=== PATIENT | male | born 1950 | race Caucasian/White ===

== ENCOUNTER 2017-02-18 21:24 | Emergency (ER) | payer BC ==
[2017-02-18] MEDS ORDERED: HYDROMORPHONE HCL 1 MG/ML CPJ IVP ONE (23:05)
[2017-02-18] MEDS ORDERED: PROMETHAZINE HCL 25 MG/ML VIAL IVP ONE (23:05)
[2017-02-18] MEDS ORDERED: KETOROLAC 30 MG/ML VIAL IVP ONE (23:05)
--- NOTE | 2017-02-19 00:53 | Emergency Department Record ---
History of Present Illness - General Chief Complaint: Back Pain/Injury Stated Complaint: LOWER BACK PAIN,VOMITTING Time Seen by Provider: 02/18/17 22:54 Source: Patient Mode of Arrival: Ambulatory Limitations: No limitations - History of Present Illness Initial Comments: pt lifted a bag of charcoal and felt a pop in his back and inow having pain going down his r leg w tingling in both leg. no loss of bowel or bladder control. he has a hx of a broken back many years ago MD Complaint: Back pain, Back injury Onset/Timin -: Hour(s) Similar Symptoms Previously: Yes Place: Home Radiation: None Quality: Other Consistency: Getting worse Context: Bending, While lifting Associated Symptoms: Nausea/vomiting Treatments Prior to Arrival: Prescription analgesics, Other - Related Data Home Medications Medication Instructions Recorded Confirmed Last Taken Aspirin [Adult Low Dose Aspirin EC] 81 mg PO DAILY 03/12/16 02/18/17 Unknown Atorvastatin Calcium 40 mg PO DAILY 03/12/16 02/18/17 Unknown Cetirizine HCl [Allergy Relief] 10 mg PO DAILY 03/12/16 02/18/17 Unknown Fenofibrate Nanocrystallized 145 mg PO DAILY 03/12/16 02/18/17 Unknown [Fenofibrate] Multivitamin [Multi-Vitamin Daily] 2 each PO DAILY 03/12/16 02/18/17 Unknown [place]-3/Dha/Epa/Fish Oil [Super 1 each PO DAILY 03/12/16 02/18/17 Unknown Dha Gems Softgel] Propranolol HCl [Propranolol HCl 80 mg PO DAILY 03/12/16 02/18/17 Unknown ER] Previous Rx's Medication Instructions Recorded Cyclobenzaprine HCl [Flexeril] 5 mg PO TID #20 tab 02/19/17 Allergies Allergy/AdvReac Type Severity Reaction Status Date / Time acetaminophen [From Vicodin] Allergy DIFFICULTY Verified 03/12/16 08:53 BREATHING alcohol Allergy DIFFICULTY Verified 03/12/16 08:53 SWALLOWING butorphanol [From Stadol] Allergy ANAPHYLAXIS Verified 02/18/17 22:18 codeine Allergy DIFFICULTY Verified 03/12/16 08:53 BREATHING hydrocodone bitartrate Allergy DIFFICULTY Verified 03/12/16 08:53 [From Vicodin] BREATHING meperidine HCl [From Demerol] Allergy DIFFICULTY Verified 03/12/16 08:53 BREATHING morphine Allergy DIFFICULTY Verified 03/12/16 08:53 BREATHING Travel Screening - Travel/Exposure Within Last 30 Days Have you traveled within the last 30 days?: No - Travel/Exposure Within Last Year Have you traveled outside the [place] in the last year?: No - Additonal Travel Details Have you been exposed to anyone with a communicable illness?: No - Travel Symptoms Symptom Screening: None Review of Systems Reviewed: No additional complaints except as noted below Constitutional: Reports: As per HPI. Denies: Chills, Fever, Malaise, Night sweats, Weakness, Weight change Eyes: Reports: As per HPI. Denies: Eye discharge, Eye pain, Photophobia, Vision change ENT: Reports: As per HPI. Denies: Congestion, Dental pain, Ear pain, Epistaxis , Hearing loss, Throat pain Respiratory: Reports: As per HPI. Denies: Cough, Dyspnea, Hemoptysis, Stridor, Wheezes Cardiovascular: Reports: As per HPI. Denies: Arrhythmia, Chest pain, Dyspnea on exertion, Edema, Murmurs, Orthopnea, Palpitations, Paroxysmal nocturnal dyspnea, Rheumatic Fever, Syncope Endocrine: Reports: As per HPI. Denies: Fatigue, Heat or cold intolerance, Polydipsia, Polyuria Gastrointestinal: Reports: As per HPI. Denies: Abdominal pain, Constipation, Diarrhea, Hematemesis, Hematochezia, Melena, Nausea, Vomiting Genitourinary: Reports: As per HPI. Denies: Dysuria, Frequency, Hematuria, Incontinence, Retention, Testicular pain, Testicular mass, Urgency Musculoskeletal: Reports: As per HPI. Denies: Arthralgia, Back pain, Gout, Joint swelling, Myalgia, Neck pain Skin: Reports: As per HPI. Denies: Bruising, Change in color, Change in hair/ nails, Lesions, Pruritus, Rash Neurological: Reports: As per HPI. Denies: Abnormal gait, Confusion, Headache, Numbness, Paresthesias, Seizure, Tingling, Tremors, Vertigo, Weakness Psychiatric: Reports: As per HPI. Denies: Anxiety, Auditory hallucinations, Depression, Homicidal thoughts, Suicidal thoughts, Visual hallucinations Hematological/Lymphatic: Reports: As per HPI. Denies: Anemia, Blood Clots, Easy bleeding, Easy bruising, Swollen glands Past Medical History - SOCIAL HISTORY Smoking Status: Never smoker Alcohol Use: None Drug Use: None - RESPIRATORY Hx Respiratory Disorders: No - CARDIOVASCULAR Hx Cardio Disorders: Yes Hx Coronary Artery Disease: Yes - NEURO Hx Neuro Disorders: No - GI Hx GI Disorders: No - Hx Kidney Stones: Yes - ENDOCRINE Hx Endocrine Disorders: No Hx Diabetes: No Hx Thyroid Disease: No - MUSCULOSKELETAL Hx Musculoskeletal Disorders: Yes Hx Arthritis: Yes - PSYCH Hx Psych Problems: No - HEMATOLOGY/ONCOLOGY Hx Hematology/Oncology Disorders: No Family Medical History Any Significant Family History?: No Hx Cancer: Brother/Sister Hx Diabetes: Grandparents Hx Heart Disease: Grandparents Physical Exam - General General Appearance: Alert, Oriented x3, Cooperative, Mild distress - Head Head exam: Normal inspection - Eye Eye exam: Normal appearance, PERRL, EOMI Pupils: Normal accommodation - ENT ENT exam: Normal exam, Mucous membranes moist, Normal external ear exam, Normal orophraynx Ear exam: Normal external inspection. negative: External canal tenderness Nasal Exam: Normal inspection. negative: Discharge, Sinus tenderness Mouth exam: Normal external inspection, Tongue normal Teeth exam: Normal inspection. negative: Dental caries Throat exam: Normal inspection. negative: Tonsillar erythema, Tonsillar exudate - Neck Neck exam: Normal inspection, Full ROM. negative: Tenderness - Respiratory Respiratory exam: Normal lung sounds bilaterally. negative: Respiratory distress - Cardiovascular Cardiovascular Exam: Regular rate, Normal rhythm, Normal heart sounds - GI/Abdominal GI/Abdominal exam: Soft, Normal bowel sounds. negative: Tenderness - Rectal Rectal exam: Deferred - exam: Deferred - Extremities Extremities exam: Normal inspection, Full ROM, Normal capillary refill. negative: Tenderness - Back Back exam: Reports: Muscle spasm, Paraspinal tenderness, Tenderness, Vertebral tenderness. Denies: Normal inspection, Full ROM, Rash noted - Neurological Neurological exam: Alert, CN II-XII intact, Normal gait, Oriented X3 - Psychiatric Psychiatric exam: Normal affect, Normal mood - Skin Skin exam: Dry, Intact, Normal color, Warm Course Vital Signs 02/18/17 02/18/17 02/18/17 22:08 23:21 23:23 Temperature 98.3 F 98.5 F 98.5 F Pulse Rate [ 56 L 54 L 55 L Pulse Ox Probe] Respiratory 18 20 20 Rate Blood Pressure 167/90 160/85 [Left Arm] Pulse Ox 96 96 95 02/19/17 00:05 Temperature Pulse Rate [ 51 L Pulse Ox Probe] Respiratory 20 Rate Blood Pressure 155/80 [Left Arm] Pulse Ox 98 - Reevaluation(s) Reevaluation #1: 02/19/17 00:52 pt feels better. pt has plenty of norco on hand Reevaluation #2: 02/19/17 00:52 ct neg except djd Disposition Disposition: Discharge Clinical Impression: Radiculopathy Qualifiers: Spinal region: lumbosacral Qualified Code(s): M54.17 - Radiculopathy, lumbosacral region Disposition: Home, Self-Care Condition: (1) Good Instructions: Lumbar Radiculopathy (ED) Additional Instructions: follow up with family doctor this week. return sooner if worse. no lifting more then 5 lbs for 5 days. ice every 4 hrs for 2 days Prescriptions: Cyclobenzaprine HCl [Flexeril] 5 mg PO TID #20 tab Forms: Patient Portal Access
== END 2017-02-19 01:07 | disposition home or self-care (01) ==
LOC: ER 21:24
DX: S39.92XA Unspecified injury of lower back, initial encounter (principal); M54.17 Radiculopathy, lumbosacral region; X50.9XXA Other and unspecified overexertion or strenuous movements or postures, initial encounter; Y92.009 Unspecified place in unspecified non-institutional (private) residence as the place of occurrence of the external cause; R11.2 Nausea with vomiting, unspecified
CPT/HCPCS: 99284 ×2; 96374; 96375; 72131; J1885; J1170; J2550

== ENCOUNTER 2019-03-25 05:33 | Day surgery (SDC) | payer BC ==
[2019-03-25] MEDS ORDERED: DEXAMETHASONE 4 MG/ML 1ML VIAL IVP ONE (05:34)
[2019-03-25] MEDS ORDERED: ONDANSETRON HCL IV 4 MG/2 ML VIAL IVP ONE (05:34)
[2019-03-25] MEDS ORDERED: LIDOCAINE 2% MDV (20MG/ML) 20ML VIAL IV ONE (05:34)
[2019-03-25] MEDS ORDERED: FENTANYL PF 100MCG/2ML VIAL IV ONE (05:34)
[2019-03-25] MEDS ORDERED: MIDAZOLAM HCL 2MG/2ML VIAL IV ONE (05:34)
[2019-03-25] MEDS ORDERED: PROPOFOL 10 MG/ML VIAL IV ONE (05:34)
[2019-03-25] MEDS ORDERED: BUPIVACAINE 0.25% MPF 30ML VIAL IVP ONE (05:34)
[2019-03-25] MEDS ORDERED: KETOROLAC 30 MG/ML VIAL IVP ONE (05:34)
[2019-03-25] MEDS ORDERED: BUPIVACAINE LIPOSOME/PF 133MG/10ML VIAL IV ONE (05:34)
[2019-03-25] MEDS ORDERED: SEVOFLURANE 250 ML INH ONE (05:34)
[2019-03-25] MEDS ORDERED: RINGERS SOLUTION,LACTATED 1,000 ML IV ONE ×2 (06:15→09:05)
[2019-03-25] MEDS ORDERED: EPINEPHRINE 1 MG/ML AMPUL SQ ONE (08:35)
[2019-03-25] MEDS ORDERED: HYDROCODONE/APAP 5/325MG TABLET PO ONE (09:28)
--- NOTE | 2019-03-25 16:11 | Operative Note ---
DATE OF SURGERY: 03/25/2019 PREOPERATIVE DIAGNOSES: 1. Tear of the right rotator cuff. 2. Impingement syndrome right shoulder. 3. Tear of the glenoid labrum right shoulder. POSTOPERATIVE DIAGNOSES: 1. Tear of the right rotator cuff. 2. Impingement syndrome right shoulder. 3. Tear of the glenoid labrum right shoulder. OPERATION: 1. Arthroscopic repair of the right rotator cuff. 2. Arthroscopic subacromial decompression and acromioplasty of the right shoulder. 3. Arthroscopic debridement of glenoid labrum right shoulder. SURGEON: Mansoor Ortiz D.O. REFERRING PHYSICIAN: Taye Hdez M.D. ANESTHESIA: General. PROCEDURES: This 69-year-old male was taken to the operating room and placed in the supine position on the operating room table. A general anesthetic was administered and the right shoulder was prepped with Hibiclens and draped in the usual sterile fashion, after he had been placed in the beach chair position with all bony prominences well padded and the head well secured. A posterior portal was established in the glenohumeral joint and initial evaluation of the joint demonstrated disruption of the glenoid labrum superiorly and anteriorly and to a lesser degree posteriorly. The articular cartilage appeared relatively normal except for some grade 2 chondromalacia at the superior margin just below the biceps anchor. The biceps itself demonstrated very minimal scuffing, but overall otherwise appeared to be intact. The subscapularis appeared to be normal. The patient had a very large "V" shaped rotator cuff tear as seen from below. An anterior portal was established and probing of these structures confirmed these findings and debridement of the rotator cuff and labrum was performed through the anterior portal. The scope was then placed in the subacromial space and thorough subacromial decompression and acromioplasty was performed with excellent visualization. We had a difficult time repairing the supraspinatus. There was some retraction which was difficult to get underneath, but we did get a single [id number] suture to close the V-shape and tear of the rotator cuff. We were then able to bring the infraspinatus up and over the tuberosity and then a double-row repair was accomplished using the [employer] SpeedBridge technique, repairing the remainder of the cuff. The repair appeared to be satisfactory although certainly not ideal, but the cuff had approximation to the tuberosity for bony ingrowth. The wound was then copiously irrigated and suctioned. The portals were irrigated and the skin closed with 4-0 nylon suture. Sterile dressings with an UltraSling were applied. The patient was taken to the recovery room in satisfactory condition. GROSS PATHOLOGY: This patient had a very large "V" type tear in the supraspinatus with retraction. We did mobilize the cuff the best that we could and did put a single [id number] suture and then the remainder of the cuff was closed with a SpeedBridge technique using a double-row repair. Reapproximation of the infraspinatus appeared to be satisfactory. BONGD
== END 2019-03-25 10:20 | disposition home or self-care (01) ==
LOC: SUR 05:33
PROVIDERS: ATTEND Orthopaedic Surgery
DX: M75.101 Unspecified rotator cuff tear or rupture of right shoulder, not specified as traumatic (principal); S43.431A Superior glenoid labrum lesion of right shoulder, initial encounter; M75.41 Impingement syndrome of right shoulder; I10 Essential (primary) hypertension; E78.00 Pure hypercholesterolemia, unspecified; I25.10 Atherosclerotic heart disease of native coronary artery without angina pectoris; G25.0 Essential tremor; G47.33 Obstructive sleep apnea (adult) (pediatric)
CPT/HCPCS: 29827; 29826; 29822; 01630; 64415; C9290; 76942; J0171; J1885; J2405; J7120